=== PATIENT | male | born 2000 | race Two or more races ===

== ENCOUNTER 2023-03-17 19:39 | Emergency (ER) | payer OTHER ==
[2023-03-17] MEDS ORDERED: DEXAMETHASONE 10 MG/ML VIAL IM STA (20:11)
[2023-03-17] MEDS ORDERED: HYDROmorphone 1 MG/ML CARPUJECT IM STA (20:11)
[2023-03-17] MEDS ORDERED: KETOROLAC 60 MG/2 ML VIAL IM STA (20:11)
--- NOTE | 2023-03-17 20:14 | ED Physician Documentation ---
History of Present Illness - Stated complaint Stated Complaint: BACK PX - Chief complaint Chief Complaint: Back Pain - History obtained from History obtained from: Patient - Additonal information Additional information: The patient comes to the emergency department chief complaint of back pain. He has a history of back pain on and off for years but has never been formally evaluated for it. He states he gets flareups occasionally depending what kind activity he has been doing and this seems to be the same sort of situation. He states he did a lot of lifting and transferring at work yesterday and by the time he got home, he felt as though his back was tight especially in the left side. His significant other states she noticed that he seemed to be leaning to the left a bit and that his back looked "like an ass". The patient has been uncomfortable all day and they finally decided to come in. He denies any loss of bowel or bladder control. He denies any fevers, chills, abdominal symptoms, or urinary symptoms. He did not at any point have a distinct injury in which he felt a "pop" or "snap." He denies any pain radiating down his legs. No loss of sensation in his lower extremities. No weakness. No other complaints at this time. He states he is otherwise fairly healthy. No surgeries on his back. PD PAST MEDICAL HISTORY - Past Medical History Past Medical History: No - Past Surgical History Past Surgical History: No - Present Medications Home Medications: Ambulatory Orders Medication Instructions Recorded Confirmed HYDROcod/ACETAM 5/325 [[place] 5/325] 1 - 2 tablet PO Q6H PRN #14 tablet 03/17/23 Ibuprofen [Motrin] 800 mg PO Q8H PRN #30 tablet 03/17/23 predniSONE [Deltasone] 10 mg PO [id number] #42 tab 03/17/23 - Allergies Allergies/Adverse Reactions: Allergies Allergy/AdvReac Type Severity Reaction Status Date / Time No Known Drug Allergies Allergy Verified 03/17/23 19:51 - Social History Does the pt smoke?: No Smoking Status: Never smoker Does the pt drink ETOH?: No Does the pt have substance abuse?: No - Immunizations Immunizations are current?: Yes - POLST Patient has POLST: No PD ED PE NORMAL - Vitals Vital signs reviewed: Yes - General General: Alert and oriented X 3, No acute distress, Well developed/nourished - HEENT HEENT: Atraumatic, PERRL, EOMI, Moist mucous membranes - Neck Neck: Supple, no meningeal sign - Cardiac Cardiac: RRR, No murmur - Respiratory Respiratory: No respiratory distress, Clear bilaterally - Abdomen Abdomen: Soft, Non tender, Non distended - Back Back: No spinal TTP, Other (Tenderness palpation over left lumbar paraspinal musculature, extending into left SI joint area. No obvious spinal deformity.) - Derm Derm: Warm and dry - Extremities Extremities: No deformity - Neuro Neuro: Alert and oriented X 3 - Psych Psych: Normal mood, Normal affect Results - Vitals Vitals: Vital Signs - 24 hr 03/17/23 03/17/23 19:51 21:00 Temperature 36.5 C Heart Rate 77 80 Respiratory 16 18 Rate Blood Pressure 160/70 H 145/83 H O2 Saturation 99 98 Oxygen O2 Source Room air PD Medical Decision Making - ED course Complexity details: considered differential, d/w patient ED course: The patient was treated symptomatically in the emergency department for his back pain. I did not feel that simple imaging with x-rays would be likely to yield any helpful information, but I did discuss with the patient and his significant other was a fill technician, that perhaps an MRI with his primary care physician at some point in the future may be helpful if he continues to have flareups of his back pain. There were no signs of emergent causes or complications of the patient's back pain during his visit here. Departure - Departure Disposition: 01 Home, Self Care Clinical Impression: Back pain Qualifiers: Back pain location: low back pain Chronicity: acute Back pain laterality: left Sciatica presence: without sciatica Qualified Code(s): M54.50 - Low back pain, unspecified Condition: Stable Instructions: ED Sprain Strain Lumbar Prescriptions: predniSONE [Deltasone] 10 mg PO [id number] #42 tab Ibuprofen [Motrin] 800 mg PO Q8H PRN #30 tablet PRN Reason: PAIN &/OR FEVER HYDROcod/ACETAM 5/325 [[place] 5/325] 1 - 2 tablet PO Q6H PRN #14 tablet PRN Reason: Pain Comments: You have been treated today for your lumbar back spasm and should not drive for the next 8 hours because of the sedating medication you have been given. Prescriptions for medication to help with your symptoms been electronically transmitted to the [facility] pharmacy in [place]. You should rest from any heavy work with your back over the next couple of days, but due to work on stretching and gentle range of motion. You may also use ice, heat, and massage to help relax some of the muscle spasm. [place] to [place] pain, or if you wish to discuss the possibility of a follow-up MRI. Forms: Activity restrictions
[2023-03-17 21:09] VITALS: BP 145/83; O2SAT 98
== END 2023-03-17 21:03 | disposition home or self-care (01) ==
LOC: ED 19:39
DX: M54.50 Low back pain, unspecified (principal)
CPT/HCPCS: 96372; 96374; 99283; J1170